=== PATIENT | female | born 1960 | race Caucasian/White ===

== ENCOUNTER 2017-03-16 08:04 | Emergency (ER) | payer BC ==
[2017-03-16] MEDS ORDERED: ONDANSETRON HCL IV 4 MG/2 ML VIAL IV ONE (08:18)
[2017-03-16] MEDS ORDERED: SODIUM CHLORIDE 0.9% 500 ML IV ONE (08:18)
--- NOTE | 2017-03-16 08:23 | Emergency Department Record ---
History of Present Illness - General Chief complaint: Flank Pain Stated complaint: KIDNEY STONE Time Seen by Provider: 03/16/17 08:10 Source: Patient Mode of Arrival: Ambulatory Limitations: No limitations - History of Present Illness Initial comments: The patient is here due to a 3 day hx of L flank pain. The pain is described as sharp and stabbing and is associated with very mild dysuria. She has some nausea and vomiting last night. The patient states she has a hx of multiple kidney stones in the past and has been able to pass them all except once when she needed to have it removed by Urology. She denies any fever. The patient states she did go to an in the past 3 days and was told she had blood in the urine and was placed on Cipro. MD Complaint: Other Onset/Timin -: Days(s) Radiation: L flank Severity: Moderate Severity scale (1-10): 8 Quality: Sharp, Stabbing Patient : No Associated Symptoms: Nausea/vomiting - Related Data Home Medications Medication Instructions Recorded Confirmed Last Taken Ciprofloxacin HCl [Cipro] 500 mg PO Q12HR 03/16/17 03/16/17 03/16/17 Previous Rx's Medication Instructions Recorded Cyclobenzaprine HCl [Flexeril] 10 mg PO TID #20 tablet 09/01/14 Hydrocodone/Acetaminophen [Elba 1 - 2 each PO QID #20 tablet 03/16/17 5-325 Tablet] Tamsulosin HCl [Flomax] 0.4 mg PO DAILY #7 cap.er.24h 03/16/17 Allergies Allergy/AdvReac Type Severity Reaction Status Date / Time No Known Drug Allergies Allergy Verified 03/16/17 08:10 Travel Screening - Travel/Exposure Within Last 30 Days Have you traveled within the last 30 days?: No - Travel/Exposure Within Last Year Have you traveled outside the [place] in the last year?: No - Additonal Travel Details Have you been exposed to anyone with a communicable illness?: No - Travel Symptoms Symptom Screening: None Review of Systems Constitutional: Denies: Chills, Fever Eyes: Denies: Eye discharge ENT: Denies: Congestion Respiratory: Denies: Cough, Dyspnea Past Medical History - SOCIAL HISTORY Smoking Status: Never smoker Alcohol Use: None Drug Use: None - RESPIRATORY Hx Respiratory Disorders: No - CARDIOVASCULAR Hx Cardio Disorders: No - NEURO Hx Neuro Disorders: No - GI Hx GI Disorders: No - Hx Genitourinary Disorders: Yes Hx Kidney Stones: Yes - ENDOCRINE Hx Endocrine Disorders: No - MUSCULOSKELETAL Hx Musculoskeletal Disorders: No - PSYCH Hx Psych Problems: No - HEMATOLOGY/ONCOLOGY Hx Hematology/Oncology Disorders: No Family Medical History Any Significant Family History?: No Hx Heart Disease: Father Hx HTN: Father Physical Exam - General General Appearance: Alert, Cooperative, No acute distress - Head Head exam: Atraumatic, Normocephalic - Eye Eye exam: Normal appearance, PERRL - Neck Neck exam: Normal inspection, Full ROM. negative: Tenderness - Respiratory Respiratory exam: Normal lung sounds bilaterally. negative: Respiratory distress - Cardiovascular Cardiovascular Exam: Regular rate, Normal rhythm, Normal heart sounds - GI/Abdominal GI/Abdominal exam: Soft, Normal bowel sounds, Tenderness (There is mild L lower quad tenderness.). negative: Rebound, Rigid - Extremities Extremities exam: Normal inspection, Full ROM, Normal capillary refill. negative: Tenderness - Back Back exam: Denies: CVA tenderness (R), CVA tenderness (L) Course Vital Signs 03/16/17 03/16/17 08:05 08:06 Temperature 97.9 F Pulse Rate 88 Pulse Rate [ 95 H Pulse Ox Probe] Respiratory 20 12 Rate Blood Pressure 147/96 Blood Pressure 147/96 [Left Arm] Pulse Ox 98 - Reevaluation(s) Reevaluation #1: The patient is doing very well at this time. I did not give her any pain medicine due to the fact she is quite comfortable and she does need to drive home. Her CR is mildly elevated so I could not give her Toradol. I did explain the CT result to her and the need for F/U with both Urology and [employer]. 03/16/17 09:50 Reevaluation #2: I did discuss the case with Dr. Xiao and he does agree with the plan. 03/16/17 11:52 Medical Decision Making - Data Complexity MDM Data: Labs Ordered and/or Reviewed, X-Ray Ordered and/or Reviewed - Lab Data Result diagrams: 03/16/17 08:20 03/16/17 08:20 - Radiology Data Radiology results: Report reviewed (CT: 6.7 mm distal ureter stone with hydro. There also is a R lower pelvic mass: etiology unclear.) Disposition Disposition: Discharge Clinical Impression: Ureteral stone with hydronephrosis Disposition: Home, Self-Care Condition: (2) Stable Instructions: Renal Colic (ED) Additional Instructions: Drink plenty of fluids and take the Elba and Flomax as directed. Please see Dr. Xiao next week. Return to the ER for any worsening pain, fever, or vomiting. Prescriptions: Hydrocodone/Acetaminophen [Elba 5-325 Tablet] 1 - 2 each PO QID #20 tablet Tamsulosin HCl [Flomax] 0.4 mg PO DAILY #7 cap.er.24h Referrals: [facility] [Provider Group] KEAGAN XIAO M.D. [MEDICAL DOCTOR] - Forms: Patient Portal Access Time of Disposition: 09:53 Quality - Quality Measures Quality Measures: N/A - Blood Pressure Screening View Details: Yes Does Patient Have Any of the Following: No Blood Pressure Classification: Hypertensive Reading Systolic Measurement: 145 Diastolic Measurement: 74 Screening for High Blood Pressure: < Pre-Hypertensive BP, F/U Documented > [ [id number]] Pre-Hypertensive Follow-up Interventions: Referral to alternative/primary care provider.
[2017-03-16 08:32] LABS: BASO % 0.2 % (0-6); EOS % 0.8 % (0-6); GRAN % 75.7 % (47-80); HEMATOCRIT 40.9 % (35.0-47.0); HEMOGLOBIN 13.8 gm/dl (11.6-16.0); LYMPH % 16.4 % (16-45); MEAN CELL VOLUME 86.8 fl (81-97); MEAN CORPUSCULAR HEMOGLOBIN 29.3 pg (27-33); MEAN CORPUSCULAR HGB CONC 33.7 g/dl (32-36); MEAN PLATELET VOLUME 9.2 fl (7.4-10.4); MONO % 6.9 % (0-9); PLATELET COUNT 279 K/uL (130-400); RED BLOOD COUNT 4.71 M/uL (3.80-5.40); RED CELL DISTRIBUTION WIDTH 13.6 % (11.5-14.5); WHITE BLOOD COUNT W/O DIFF 9.2 K/uL (4.2-12.2)
[2017-03-16 08:35] LABS: URINE APPEARANCE SL CLOUDY; URINE BILIRUBIN NEGATIVE (NEGATIVE); URINE BLOOD SMALL (NEGATIVE); URINE COLOR ORANGE; URINE GLUCOSE (UA) NEGATIVE (NEGATIVE); URINE KETONE NEGATIVE (NEGATIVE); URINE LEUKOCYTE ESTERASE TRACE (NEGATIVE); URINE NITRITE POSITIVE (NEGATIVE); URINE PROTEIN TRACE (NEGATIVE); URINE UROBILINOGEN 0.2 E.U./dL (0.20 - 1.00)
[2017-03-16 08:43] LABS: CREATININE 1.2 mg/dL (0.5-0.9)
[2017-03-16 08:46] LABS: URINE BACTERIA NONE SEEN; URINE EPITHELIAL CELLS 0 - 2 (FEW); URINE RBC 0 - 2 (NONE SEEN); URINE WBC 0 - 2 (0-2/hpf)
[2017-03-16] MEDS ORDERED: 0.9 % SODIUM CHLORIDE 1,000 ML BAG IV ONE (08:54)
--- NOTE | 2017-03-16 22:21 | CT SCAN REPORT ---
EXAM: CT SCAN ABDOMEN/PELVIS WO CONTRAST HISTORY: ACUTE LEFT FLANK PAIN FOR THREE DAYS. TECHNIQUE: Axial CT scan of the abdomen and pelvis performed without IV or oral contrast. COMPARISON: None. FINDINGS: There are multiple calcifications in each kidney consistent with multiple currently nonobstructing intrarenal calculi. However, there is also moderate hydronephrosis and hydroureter on the left with the dilated left ureter followed down to the mid pelvis, where it becomes contiguous with an approximately 6.7 mm in diameter calcification consistent with a left lower ureteral calculus causing a component of obstruction on the left. This is still several centimeters away from the left UVJ itself. Beyond this, the left ureter is nondilated with no additional more distal left ureteral calculus seen and no bladder calculus evident. There is no hydronephrosis or hydroureter on the right with no right ureteral calculus identified. No calcified gallstones are seen within the gallbladder. Evaluation of the bowel and viscera is very limited without oral or IV contrast. Given this limitation, no definite hepatic or splenic mass evident. There are several calcified splenic granulomas. Slight prominence of the spleen size measuring about 13 cm in AP, by 5 cm in transverse diameters and with a craniocaudal length of about 11 cm. No definite adrenal, pancreatic, or left renal mass identified. There is a small exophytic right renal mass only about 1.3 cm in size, incompletely evaluated without IV contrast, although having a noncontrast CT density of 15, which would be consistent with a small cyst. If not previously documented, follow-up MRI of the kidneys could be performed to confirm its identity as a cyst. There are some mildly prominent right inguinal nodes with the largest measuring about 11 mm in maximum short axis. These are nonspecific, although may just be reactive. Tiny periumbilical anterior abdominal wall hernia containing adipose tissue but no bowel. In addition to the mild inguinal lymph node prominence on the right, there is a structure that appears to arise from the broad ligament extending through the inguinal canal leading to an approximately 18 x 12 mm structure. This may be some form of gynecologic structure and correlation with physical exam and gynecologic history is suggested. No free intraperitoneal air or free intraperitoneal fluid evident. Some mild spurring in the spine. IMPRESSION: 1. APPEARANCE CONSISTENT WITH AN APPROXIMATELY 6.7 MM LOWER LEFT URETERAL CALCULUS CAUSING A COMPONENT OF OBSTRUCTION ON THE LEFT. 2. MULTIPLE BILATERAL CURRENTLY NONOBSTRUCTING INTRARENAL CALCULI WELL. 3. GENEROUS SIZE SPLEEN WITH NO FOCAL SPLENIC MASS EVIDENT. 4. PROBABLE SMALL CYST RIGHT KIDNEY INCOMPLETELY EVALUATED WITHOUT IV CONTRAST , DESCRIBED ABOVE. 5. SMALL PERIUMBILICAL ANTERIOR ABDOMINAL WALL HERNIA CONTAINING ADIPOSE TISSUE. 6. SOME SLIGHTLY PROMINENT RIGHT INGUINAL NODES. THERE ALSO APPEARS TO BE A STRUCTURE EXTENDING INTO THE RIGHT INGUINAL REGION ASSOCIATED WITH THE BROAD LIGAMENT, QUESTIONABLY OF GYNECOLOGIC ORIGIN. CORRELATION WITH PHYSICAL EXAM AND GYNECOLOGIC HISTORY SUGGESTED. JOB NUMBER: [id number] [facility]
== END 2017-03-16 10:24 | disposition home or self-care (01) ==
LOC: ER 08:04
DX: N13.2 Hydronephrosis with renal and ureteral calculous obstruction (principal); R11.2 Nausea with vomiting, unspecified; R30.0 Dysuria; Z87.442 Personal history of urinary calculi
CPT/HCPCS: 99284 ×2; 96374; 96361; 85025; 80048; 81001; 74176; J2405; J7030